=== PATIENT | female | born 1955 | race Caucasian/White ===

== ENCOUNTER 2018-11-30 01:05 | Observation (INO) | payer OTHER ==
[~2018-11-30] VITALS: Ht 167.6 cm; Wt 99.1 kg
[2018-11-30] MEDS ORDERED: SUCRALFATE1 GM/10 ML PO (12:49)
[2018-11-30] MEDS ORDERED: NEXIUM 24HR20 M2 PO (12:50)
--- NOTE | 2018-11-30 22:34 | OR ---
[facility] [address], [place] [address] Signed DATE OF OPERATION: 11/30/2018 SURGEON: Jennifer Wynn MD PREOPERATIVE DIAGNOSIS: Cervical dysphagia with retained food. POSTOPERATIVE DIAGNOSIS: Marked inflammatory change of cervical esophagus at 15 cm. Passage of retained food to stomach. PROCEDURES: 1. Esophagogastroduodenoscopy for foreign body obstruction. 2. Esophageal and gastric biopsies. ANESTHESIA: General endotracheal; Jennifer Dunne CRNA. INDICATION: This 63-year-old white woman is a patient of UMESH Hardwick, and was seen in the emergency room at approximately 2 in the morning, having suffered a food impaction localized in the upper esophagus earlier in the day at about 2:00 p.m. She was able to eruct two poorly cooked cute segments of potato, but still feels that there is retained food substance in the cervical esophageal area. She does not have hypersalivation. She is not known to have ongoing gastroesophageal reflux and takes no medications for that. She has had no hematemesis. She is admitted to undergo upper endoscopy to relieve the food impaction as well as other indicated procedures. She understands the risks of bleeding, infection, perforation, and so on. FINDINGS: She was allowed to remain in the supine position after general endotracheal anesthesia to secure the airway. She was found at approximately 15 cm from the incisors to have an area of marked inflammatory change but without distinct stricture or neoplasm. There is no doubt it was the site of obstruction previously. The potato that had been incompletely passed was noted in the stomach and likely was the offending food impaction based on length of time since any oral intake. Multiple biopsies were taken at 15 cm to rule out an inflammatory dysplastic mucosa. The distal esophagus and midportion were entirely normal with no evidence of eosinophilic esophagitis, stricture, neoplasm, or other problem. The stomach itself was mildly inflamed. Retroflexed view did show a poor flap valve. Pylorus and duodenum were normal. CLOtest was negative 20 minutes Electronically Signed By: JENNIFER WYNN MD 11/30/18 2234 PATIENT NAME: LAURA VIZCAINO OPERATIVE REPORT DATE OF : 55 REPORT #: [id number] PHYSICIAN: JENNIFER WYNN MD PCP: MAMTA JOHN PA-C REPORT IS CONFIDENTIAL AND NOT TO BE RELEASED WITHOUT AUTHORIZATION [facility] [address], [place] [address] Signed post procedure. DESCRIPTION OF PROCEDURE: The patient was brought to endoscopy suite and placed in supine position and given a general endotracheal anesthetic. A bite block was placed and an Olympus video upper endoscope passed in the hypopharynx. The airway appeared to be well secured in the region of the vocal cords. Scope was advanced to the esophagus and immediately noted were inflammatory changes. I did not see an obstructing foreign body, though there was distortion of the tissue. The scope was advanced down the esophagus. The mid and distal portions were entirely normal in every way. The scope was then passed into the stomach, which was insufflated with air more fully. Small potato chunk was seen in the distal stomach, perhaps passed recently, uncertain in fact. The scope was passed through the pylorus into the duodenum, which was normal. Biopsies were taken of the antrum for both VANDANA and pathologic testing. Retroflexed view was undertaken showing a reasonably good flap valve. Scope was withdrawn to the distal esophagus and it was biopsied, though it was perfectly normal in appearance. Careful withdrawal of scope to the midesophagus showed no sign of inflammation or stricture and certainly no felinization. Withdrawal of scope to the more proximal esophagus was undertaken showing the area no doubt accounting for the recent impaction. It was quite inflamed and edematous. Several biopsies were taken of the area to rule out dysplasia or neoplasm. The site was 15 cm from the incisors and appeared to be just at the junction of the vocal cord/esophageal aperture. The scope was withdrawn. The patient was taken to recovery room in good condition. CONCLUDING DIAGNOSIS: Cervical dysphagia related to inflammatory changes with food impaction, now resolved. PLAN: We will treat with Carafate 1 g slurry q.i.d. Maintain mechanical soft diet. We will see back in the office in 6 weeks or so. Assess her symptoms and progress. Whether or not repeat upper endoscopy is needed will be depending on pathology reports from biopsies obtained. MD CHRIS Goodman/BECCA /[id number] Electronically Signed By: JENNIFER WYNN MD 11/30/18 2234 PATIENT NAME: LAURA VIZCAINO OPERATIVE REPORT DATE OF : 55 REPORT #: [id number] PHYSICIAN: JENNIFER WYNN MD PCP: MAMTA JOHN PA-C REPORT IS CONFIDENTIAL AND NOT TO BE RELEASED WITHOUT AUTHORIZATION [address] [address] Signed cc: UMESH Ratliff MD Copies: RUDY CASTELLANOS MD ~ Electronically Signed By: JENNIFER WYNN MD 11/30/18 2234 PATIENT NAME: LAURA VIZCAINO WENCESLAO OPERATIVE REPORT DATE OF : 55 REPORT #: [id number] PHYSICIAN: JENNIFER WYNN MD PCP: MAMTA JOHN PA-C REPORT IS CONFIDENTIAL AND NOT TO BE RELEASED WITHOUT AUTHORIZATION
--- NOTE | 2018-11-30 22:34 | HP ---
[facility] [address], [place] [address] Signed ADMISSION DATE: 11/30/2018 REASON FOR ADMISSION: Possible retained food impaction of the proximal esophagus. HISTORY: This 63-year-old obese white woman presented to the emergency room at approximately 1:30 in the morning today. She was seen by Dr. Rodríguez. She complained that she was eating some eggs and some poorly cooked cubed potatoes at about noon and felt the food get stuck in the region of the suprasternal notch. She was able to cough up at least two of the chunks of potato. She did not have hypersalivation, but she still feels that there is something stuck in the throat. She has had nothing to eat or drink since that time. She has not had hypersalivation. She was admitted at approximately 2:00 a.m. with IV fluids running, anticipating further evaluation to include possible endoscopy if spontaneous passage was not forthcoming. At present, she still feels there is something "stuck." She has had no hematemesis, though she does have some discomfort in the area. She has no shortness of breath. She has no known aspiration of food. MEDICATIONS: She reports no medications that she takes at home. ALLERGIES: She has allergies noted to amoxicillin and Prevacid as well as Robaxin and morphine. SOCIAL HISTORY: She lives in [place]. She is but from her . She does not smoke cigarettes, though she previously did and uses alcohol occasionally and does use marijuana. SURGICAL HISTORY: Includes hysterectomy and carpal tunnel release in the right side. REVIEW OF SYSTEMS: She did not have shortness of breath, but does have persistent discomfort in the suprasternal area. She does not complain of hypersalivation. PHYSICAL EXAMINATION: Electronically Signed By: JENNIFER WYNN MD 11/30/18 2234 PATIENT NAME: LAURA VIZCAINO HISTORY AND PHYSICAL DATE OF : 55 REPORT #: [id number] PHYSICIAN: JENNIFER WYNN MD PCP: MATMA JOHN PA-C REPORT IS CONFIDENTIAL AND NOT TO BE RELEASED WITHOUT AUTHORIZATION [facility] [address], [place] [address] Signed GENERAL: A chronically ill-appearing, obese white woman who is sitting upright. She shows no sign of hypersalivation. She has no hoarseness. NECK: Trachea is midline. There is no thyroid mass or adenopathy. There is no crepitus. CHEST: Shows normal respiratory excursion without tachypnea. ABDOMEN: Obese. EXTREMITIES: Show no clubbing, cyanosis, or edema. LABORATORY STUDIES: Show a white count of 11.1 at approximately 1:30 a.m., hematocrit of 43.7. A Chem profile showing a potassium of 3.1. Liver enzymes are normal. ASSESSMENT: She may well still have some residual of poorly cooked diced potatoes in the mid to upper esophagus. She does not have hypersalivation, so complete obstruction is unlikely. We will plan for upper endoscopy with anesthesia support, which should be available within the next few hours. The risks of bleeding, infection, and perforation related to upper endoscopy were reviewed in detail. She may require airway control by endotracheal tube considering the proximal nature of the presumed obstruction. I am confident that the stomach is cleared completely, as she has not eaten or had anything to drink since at least noon yesterday. Jennifer Wynn MD JM/MODL /[id number] cc: MD Mamta Dubose PA Copies: RUDY RODRÍGUEZ MD ~ Electronically Signed By: JENNIFER WYNN MD 11/30/18 2234 PATIENT NAME: LAURA VIZCAINO HISTORY AND PHYSICAL DATE OF : 55 REPORT #: [id number] PHYSICIAN: JENNIFER WYNN MD PCP: MAMTA JOHN PA-C REPORT IS CONFIDENTIAL AND NOT TO BE RELEASED WITHOUT AUTHORIZATION
== END 2018-11-30 15:05 | disposition home or self-care (01) ==
LOC: ED 01:05 → MS 01:07
PROVIDERS: ADMIT Surgery
PROC: 0DB18ZX Excision of Upper Esophagus, Via Natural or Artificial Opening Endoscopic, Diagnostic (ICD-10-PCS; principal; 2018-11-30 12:00)
DX: T18.128A Food in esophagus causing other injury, initial encounter (principal); R13.19 Other dysphagia; E66.9 Obesity, unspecified; Z87.891 Personal history of nicotine dependence; Z68.35 Body mass index [BMI] 35.0-35.9, adult
CPT/HCPCS: 80053; 85025; 96361; 96374; 96375; 99284-25; G0378; J0131; J0330; J1100; J1610; J2405; J2704; J3010; J3480; J7030; J7060; J7120

== ENCOUNTER 2020-06-11 10:14 | Emergency (ER) | payer MEDICARE, MEDICAID ==
[~2020-06-11] VITALS: Ht 167.6 cm; Wt 99.1 kg
[~2020-06-11 10:14] MED LIST: NEXIUM 24HR20 M2 PO; SUCRALFATE1 GM/10 ML PO
[2020-06-11] MEDS ORDERED: MELOXICAM7.5 MG PO (11:47)
[2020-06-11] MEDS ORDERED: XANAX0.5 MG PO (11:47)
--- NOTE | 2020-06-13 09:51 | EKG ---
[facility] [address] [facility] [place] [address] Signed Sinus tachycardia Minimal voltage criteria for LVH, may be normal variant Nonspecific ST and T wave abnormality Abnormal ECG No previous ECGs available Confirmed by FELIPE HERNANDEZ MD ([id number]) on 06/13/2020 9:51:12 AM Electronically Signed By: FELIPE HERNANDEZ MD 06/13/20 0951 PATIENT NAME: LAURA VIZCAINO WENCESLAO Electrocardiogram DATE OF : 55 PHYSICIAN: FELIPE HERNANDEZ MD REPORT #: [id number] REPORT IS CONFIDENTIAL AND NOT TO BE RELEASED WITHOUT AUTHORIZATION
== END 2020-06-11 11:59 | disposition home or self-care (01) ==
LOC: ED 10:14
DX: S46.812A Strain of other muscles, fascia and tendons at shoulder and upper arm level, left arm, initial encounter (principal); F41.9 Anxiety disorder, unspecified; W01.0XXA Fall on same level from slipping, tripping and stumbling without subsequent striking against object, initial encounter; Z87.891 Personal history of nicotine dependence; Z88.8 Allergy status to other drugs, medicaments and biological substances; Z88.0 Allergy status to penicillin
CPT/HCPCS: 71045; 73030; 93005; 93010; 96372; 99283-25; J1885